=== PATIENT | female | born 1945 | race Caucasian/White ===

== ENCOUNTER 2023-01-24 10:35 | Outpatient (CLI) | payer MEDICARE, BC ==
[2023-01-24] MEDS ORDERED: iohexol 350MG/ML 100ml bottle IV ONE (10:48)
== END 2023-01-24 23:59 | disposition home or self-care (01) ==
LOC: RAD 10:35
PROVIDERS: ATTEND Family Medicine
DX: R59.0 Localized enlarged lymph nodes (principal); K76.89 Other specified diseases of liver; R06.02 Shortness of breath; R07.89 Other chest pain; R06.09 Other forms of dyspnea; U09.9 Post COVID-19 condition, unspecified
CPT/HCPCS: 71275; J3490; Q9967